=== PATIENT | female | born 1990 | race American Indian/Alaskan Native ===

== ENCOUNTER 2016-10-09 16:16 | Emergency (ER) | payer MEDICAID ==
[2016-10-09 16:42] VITALS: BMI 37.4
[2016-10-09 16:44] VITALS: BP 135/86; PULSE 80; RESP 16; TEMP 97.8; O2SAT 98
== END 2016-10-10 04:03 | disposition left against medical advice (07) ==
LOC: ED 16:16
DX: Z02.89 Encounter for other administrative examinations (principal); R10.9 Unspecified abdominal pain

== ENCOUNTER 2017-01-13 20:38 | Emergency (ER) | payer MEDICAID ==
[2017-01-13 20:38] VITALS: BMI 37.4
[2017-01-13 21:01] VITALS: TEMP 98.9
--- NOTE | 2017-01-13 21:34 | ED PDOC ---
Arrival/HPI - General Chief Complaint: Abdominal Pain Time Seen by Provider: 01/13/17 20:45 Historian: Patient - History of Present Illness Narrative History of Present Illness (Text): 01/13/17 21:36 Patient complains of 1 day h/o crampy pelvic pain, similar to the pain she would experience with menstrual cramps, associated with vaginal spotting. Patient states that since March of last year she stopped getting her menses , she went to see her [facility]IST and was diagnosed with PCOS, was subsequently treated with OCPs with no improvement, and was then placed on metformin, which she has been taking for the past 2 months. However, states despite all these treatments she still does not have a normal menstrual cycle. Otherwise: (-) vomiting, (-) urinary symptoms, (-) vaginal discharge, (-) diarrhea, (-) fever, (-) melena, (- ) hematochezia. Has no history of prior abdominal surgery. PMD [place] Past Medical History - Provider Review Nursing Documentation Reviewed: Yes - Infectious Disease Hx of Infectious Diseases: None - Tetanus Immunization Tetanus Immunization: Unknown - Cardiac Hx Cardiac Disorders: No - Pulmonary Hx Respiratory Disorders: Yes Hx Asthma: Yes - Neurological Hx Neurological Disorder: No - HEENT Hx HEENT Disorder: No - Renal Hx Renal Disorder: No - Endocrine/Metabolic Hx Endocrine Disorders: No - Hematological/Oncological Hx Blood Disorders: No - Integumentary Hx Dermatological Disorder: No - Musculoskeletal/Rheumatological Hx Musculoskeletal Disorders: Yes Hx Fractures: Yes - Gastrointestinal Hx Gastrointestinal Disorders: Yes Hx Diverticulitis: Yes - Genitourinary/Gynecological Hx Genitourinary Disorders: No - Psychiatric Hx Psychophysiologic Disorder: No Hx Depression: No Hx Substance Use: No - Past Surgical History Past Surgical History: No Previous - Surgical History Hx Section: Yes (x1) - Anesthesia Hx Anesthesia: No Hx Anesthesia Reactions: No Hx Malignant Hyperthermia: No - Suicidal Assessment Feels Threatened In Home Enviroment: No Family/Social History - Physician Review Nursing Documentation Reviewed: Yes Family/Social History: No Known Family HX Smoking Status: Current Some Days Smoker Hx Alcohol Use: No Hx Substance Use: No Hx Substance Use Treatment: No Allergies/Home Meds Allergies/Adverse Reactions: Allergies No Known Allergies Allergy (Verified 01/13/17 20:59) Home Medications: Home Meds Medication Instructions Recorded Confirmed MetFORMIN [glucoPHAGE] 500 mg PO BID 01/13/17 01/13/17 Review of Systems - Review of Systems Constitutional: Normal. absent: Fatigue, Weight Change, Fevers Respiratory: Normal. absent: SOB, Cough, Sputum Cardiovascular: Normal. absent: Chest Pain, Palpitations, Edema Gastrointestinal: Normal. absent: Abdominal Pain, Stool Changes, Appetite Changes Genitourinary Female: Normal, Other (h/o amenorrhea). absent: Dysuria, Frequency, Hematuria, Vaginal Discharge Musculoskeletal: Normal. absent: Arthralgias, Back Pain, Neck Pain Skin: Normal. absent: Rash, Pruritis, Skin Lesions Physical Exam Vital Signs Temp Pulse Resp BP Pulse Ox 01/13/17 21:01 98.9 F 102 H 16 125/88 98 Temperature: Afebrile Blood Pressure: Normal Pulse: Tachycardic Respiratory Rate: Normal Appearance: Positive for: Well-Appearing, Non-Toxic, Comfortable Pain Distress: Mild Mental Status: Positive for: Alert and Oriented X 3 - Systems Exam Head: Present: Atraumatic, Normocephalic Mouth: Present: Moist Mucous Membranes Neck: Present: Normal Range of Motion. No: MIDLINE TENDERNESS Respiratory/Chest: Present: Clear to Auscultation, Good Air Exchange. No: Respiratory Distress, Accessory Muscle Use, Wheezes, Rales, Rhonchi Cardiovascular: Present: Regular Rate and Rhythm, Normal S1, S2. No: Murmurs Abdomen: Present: Tenderness (mild tenderness to the suprapubic area), Normal Bowel Sounds. No: Distention, Peritoneal Signs, Rebound, Guarding Back: Present: Normal Inspection. No: CVA Tenderness, Midline Tenderness Upper Extremity: Present: Normal Inspection, Normal ROM, NORMAL PULSES. No: Edema Lower Extremity: Present: Normal Inspection, NORMAL PULSES, Normal ROM. No: Edema Neurological: Present: GCS=15, CN II-XII Intact, Speech Normal Skin: Present: Warm, Dry, Normal Color. No: Rashes Psychiatric: Present: Alert, Oriented x 3, Normal Insight, Normal Concentration Medical Decision Making ED Course and Treatment: 01/13/17 21:30 26 yo F with h/o PCOS, presents with 1 day h/o crampy pelvic pain and vaginal spotting. To r/o ectopic , ovarian torsion, possible dysmenorrhea. Plan: -- Labs -- IV fluids -- Urinalysis -- Zofran / Toradol -- Reassess and disposition -- Pelvic US 01/13/17 22:15 [facility] [place] (-). On re-evaluation, patient still continued to c/o pelvic pain despite toradol dose. IV morphine 4 mg ordered. Patient went to US. 01/13/17 22:44 Patient returned form US without any incident. US results show no ovarian torsion, labs reviewed and are wnl. 01/13/17 23:30 On reevaluation, patient reports improvement of pain. On exam patient is laying in bed comfortably in no acute distress. Abdomen remains soft with no tenderness , no guarding, no rebound. Diagnostic results discussed with the patient in great detail. Based on history, exam and diagnostic results plan will be for outpatient follow -up with [facility]. Patient states she fully agrees with and understands discharge instructions. States that she agrees with the plan and disposition. Verbalized and repeated discharge instructions and plan. I have given the patient opportunity to ask any additional questions. Follow up with [facility] in 1-2 days without fail. Advised to take [id number] Aleve as needed for pain.. Return to the emergency room at any time for any new or worsening symptoms. - Lab Interpretations Lab Results: 01/13/17 21:40 01/13/17 21:40 Lab Results 01/13/17 21:40: Sodium 137, Potassium 3.7, Chloride 105, Carbon Dioxide 24, Anion Gap 12, BUN 15, Creatinine 0.8, Est GFR ( Amer) > 60, Est GFR (Non- Af Amer) > 60, Random Glucose 82, Calcium 9.0, Total Bilirubin 0.5, AST 24, ALT 29, Alkaline Phosphatase 74, Total Protein 7.2, Albumin 4.1, Globulin 3.1, Albumin/Globulin Ratio 1.3 01/13/17 21:40: Urine Color Yellow, Urine Appearance Clear, Urine pH 6.0, Ur Specific [place] 1.025, Urine Protein Negative, Urine Glucose (UA) Negative, Urine Ketones Negative, Urine Blood Moderate H, Urine Nitrate Negative, Urine Bilirubin Negative, Urine Urobilinogen 0.2, Ur Leukocyte Esterase Negative, Urine RBC 5 - 10, Urine WBC 0 - 2, Ur Epithelial Cells 6 - 8, Urine Bacteria Small 01/13/17 21:40: WBC 10.3 D, RBC 4.37, Hgb 12.5, Hct 36.6, MCV 83.8, MCH 28.6, MCHC 34.2, RDW 12.9, Plt Count 157, MPV 10.8, Gran % 71.2 H, Lymph % (Auto) 20.9 L, Jewell % (Auto) 4.8, Eos % (Auto) 2.9, Baso % (Auto) 0.2, Gran # 7.31 H, Lymph # 2.2, Jewell # 0.5, Eos # 0.3, Baso # 0.02 - RAD Interpretation Narrative RAD Interpretations (Text): 01/13/17 22:43 TV US: FINDINGS: Uterus/cervix: Measures 0.5 cm. There is no intrauterine . No myometrial mass. Right ovary: There are physiologic cysts in the right ovary. No mass. Normal blood flow. Left ovary: There are physiologic cysts in the left ovary. No mass. Normal blood flow. Free fluid: There is a small amount of free fluid in the pelvis. IMPRESSION: There is no ovarian torsion. Dictated and Authenticated by: Devang Yan MD 01/13/2017 10:24 PM Eastern Time ([place] & [place]) Radiology Orders: 01/13/17 21:32 TRANSVAGINAL [US] Stat - Medication Orders Current Medication Orders: Discontinued Medications Ketorolac Tromethamine (Toradol) 30 mg IVP STAT STA Stop: 01/13/17 21:34 Last Admin: 01/13/17 21:54 Dose: 30 mg Morphine Sulfate (Morphine) 4 mg IVP STAT STA Stop: 01/13/17 22:18 Last Admin: 01/13/17 22:26 Dose: 4 mg Ondansetron HCl (Zofran Inj) 4 mg IVP STAT STA Stop: 01/13/17 21:33 Last Admin: 01/13/17 21:54 Dose: 4 mg - PA / THREADER / Resident Statement / has reviewed & agrees with the documentation as recorded. Disposition/Present on Arrival - Present on Arrival Any Indicators Present on Arrival: No History of DVT/PE: No History of Uncontrolled Diabetes: No Urinary Catheter: No History of Decub. Ulcer: No History Surgical Site Infection Following: None - Disposition Have Diagnosis and Disposition been Completed?: Yes Diagnosis: Pelvic pain Disposition: HOME/ ROUTINE Disposition Time: 23:30 Patient Plan: Discharge Patient Problems: Current Active Problems Problem Status Onset Pelvic pain Acute Condition: IMPROVED Discharge Instructions (ExitCare): Pelvic Pain in Women (ED) Print Language: PERSIAN Additional Instructions: Thank you for letting us take care of you today. You were treated for pelvic pain. The emergency medical care you received today was directed at your acute symptoms. Take over the counter aleeve as needed for pain. Return to the Emergency Department if your symptoms worsen, do not improve, or if you have any other problems. Please contact your accounting bookkeeper doctor in 2 days for re-evaluation and follow up. Bring any paperwork you were given at discharge with you along with any medications you are taking to your follow up visit. Our treatment cannot replace ongoing medical care by a primary care provider (PCP) outside of the emergency department. Thank you for allowing the [email or web address] team to be part of your care today. Forms: WORK NOTE
[2017-01-13 21:57] LABS: ADD MANUAL DIFF? NO
[2017-01-13 22:03] LABS: BASO # 0.02 K/mm3 (0.0-2.0); BASO % 0.2 % (0.0-3.0); EOS # 0.3 (0.0-0.7); EOS % 2.9 % (1.5-5.0); GRAN # 7.31 (1.4-6.5); GRAN % 71.2 % (50.0-68.0); HEMATOCRIT 36.6 % (36.0-48.0); LYMPH # 2.2 (1.2-3.4); LYMPH % 20.9 % (22.0-35.0); MEAN CELL VOLUME 83.8 fL (80.0-105.0); MEAN CORPUSCULAR HEMOGLOBIN 28.6 pg (25.0-35.0); MEAN CORPUSCULAR HGB CONC 34.2 g/dl (31.0-37.0); MEAN PLATELET VOLUME 10.8 fl (7.0-11.0); MONO # 0.5 (0.1-0.6); MONO % 4.8 % (1.0-6.0); PLATELET COUNT 157 10^3/uL (120.0-450.0); RED CELL DISTRIBUTION WIDTH 12.9 % (11.5-14.5); WHITE BLOOD COUNT 10.3 10^3/ul (4.5-11.0)
[2017-01-13 22:07] LABS: URINE BILIRUBIN NEGATIVE (NEGATIVE); URINE BLOOD MODERATE (NEGATIVE); URINE GLUCOSE (UA) NEGATIVE (NEGATIVE); URINE KETONE NEGATIVE (NEGATIVE); URINE LEUKOCYTE ESTERASE NEGATIVE Leu/uL (NEGATIVE); URINE PROTEIN NEGATIVE mg/dL (<30 mg/dL); URINE UROBILINOGEN 0.2 E.U./dL (<1 E.U./dL)
[2017-01-13 22:09] LABS: URINE APPEARANCE CLEAR (CLEAR); URINE COLOR YELLOW (YELLOW)
[2017-01-13 22:14] LABS: ALB/GLOB RATIO 1.3 (1.1-1.8); ALKALINE PHOSPHATASE 74 U/L (38-133); ALT/SGPT 29 U/L (7-56); AST/SGOT 24 U/L (15-39); BILIRUBIN,TOTAL 0.5 mg/dL (0.2-1.3); BLOOD UREA NITROGEN 15 mg/dL (7-21); CARBON DIOXIDE 24 mmol/L (21-33); CHLORIDE 105 mmol/L (98-107); GFR AFRICAN-AMERICAN > 60; GLUCOSE,RANDOM 82 mg/dL (70-110); POTASSIUM 3.7 mmol/L (3.6-5.0); SODIUM 137 mmol/L (132-148); TOTAL PROTEIN 7.2 g/dL (5.8-8.3)
[2017-01-13] MEDS ORDERED: Morphine 4 mg/ml ISec IVP STA (22:17)
[2017-01-13 22:20] LABS: URINE WBC 0 - 2 /hpf (0-6)
[2017-01-13 22:21] LABS: URINE BACTERIA SMALL (NEG)
[2017-01-13 23:44] VITALS: BP 120/79; PULSE 88; RESP 18; O2SAT 97
--- NOTE | 2017-01-15 13:47 | US ---
HISTORY: pelvic pain, r/o ovarian torsion COMPARISON: Transvaginal pelvic ultrasound performed 02/27/15 TECHNIQUE: Transvaginal pelvic ultrasound FINDINGS: UTERUS: Measures 7.3 x 3.1 x 4.6 cm. Anteverted. ENDOMETRIUM: Heterogeneous appearance. Measures approximately 5 mm in diameter and contains trace fluid. IUD previously demonstrated on transvaginal pelvic ultrasound performed 02/27/15 is no longer seen. CERVIX: No cervical abnormality identified. RIGHT OVARY: Measures 2.8 x 4.0 x 3.4 cm. Blood flow is demonstrated. Follicles. LEFT OVARY: Measures 3.6 x 2.5 x 3.2 cm. Blood flow is demonstrated. Follicles. FREE FLUID: Small pelvic free fluid. OTHER FINDINGS: None. IMPRESSION: Mildly heterogeneous appearance of the endometrium which measures approximately 5 mm in diameter and contains trace fluid. Small pelvic free fluid. Preliminary impression was provided by virtual radiologic.
== END 2017-01-13 23:54 | disposition home or self-care (01) ==
LOC: ED 20:38
DX: R10.2 Pelvic and perineal pain (principal)
CPT/HCPCS: 76830; 80053; 81001; 85025; 87086; 96374; 96375; 99284; J1885; J2270; J2405

== ENCOUNTER 2017-04-25 02:17 | Emergency (ER) | payer MEDICAID ==
[2017-04-25 02:17] VITALS: BMI 37.4
[2017-04-25 02:37] VITALS: RESP 18
--- NOTE | 2017-04-25 03:29 | ED PDOC ---
Arrival/HPI <Wilber Cuevas - Last Filed: 04/25/17 04:01> <Noam Kirkland - Last Filed: 04/25/17 05:08> - General Chief Complaint: Back Pain Time Seen by Provider: 04/25/17 02:59 - History of Present Illness Narrative History of Present Illness (Text): 26 year old female with a past medical history of scoliosis and diverticulosis who presents with 3 days of worsening thoracolumbar pain. She denies any radiation of the pain to the legs, associated numbness or tingling, weakness, or sensori-motor loss. She denies any bowel or bladder incontinence. She reports her pain has not responded to her typical pain regiment nor to a heating pad. She denies any trauma or precipitating event. 04/25/17 03:25 04/25/17 03:42 (Noam Kirkland) Past Medical History - Provider Review Nursing Documentation Reviewed: Yes - Infectious Disease Hx of Infectious Diseases: None - Tetanus Immunization Tetanus Immunization: Unknown - Cardiac Hx Cardiac Disorders: No - Pulmonary Hx Respiratory Disorders: Yes Hx Asthma: Yes - Neurological Hx Neurological Disorder: No - HEENT Hx HEENT Disorder: No - Renal Hx Renal Disorder: No - Endocrine/Metabolic Hx Endocrine Disorders: No - Hematological/Oncological Hx Blood Disorders: No - Integumentary Hx Dermatological Disorder: No - Musculoskeletal/Rheumatological Hx Musculoskeletal Disorders: Yes Hx Fractures: Yes Other/Comment: scoliosis - Gastrointestinal Hx Gastrointestinal Disorders: Yes Hx Diverticulitis: Yes - Genitourinary/Gynecological Hx Genitourinary Disorders: No - Psychiatric Hx Psychophysiologic Disorder: No Hx Depression: No Hx Substance Use: No - Past Surgical History Past Surgical History: No Previous - Surgical History Hx Section: Yes (x1) - Anesthesia Hx Anesthesia: No Hx Anesthesia Reactions: No Hx Malignant Hyperthermia: No - Suicidal Assessment Feels Threatened In Home Enviroment: No <Noam Kirkland - Last Filed: 04/25/17 05:08> Family/Social History - Physician Review Nursing Documentation Reviewed: Yes Family/Social History: No Known Family HX Smoking Status: Light Smoker < 10 Cigarettes Daily Hx Alcohol Use: No Hx Substance Use: No Hx Substance Use Treatment: No <Noam Kirkland - Last Filed: 04/25/17 05:08> Allergies/Home Meds <Wilber Cuevas - Last Filed: 04/25/17 04:01> <Noma Kirkland - Last Filed: 04/25/17 05:08> Allergies/Adverse Reactions: Allergies No Known Allergies Allergy (Verified 04/25/17 02:32) Home Medications: Home Meds Medication Instructions Recorded Confirmed MetFORMIN [glucoPHAGE] 500 mg PO BID 01/13/17 04/25/17 Review of Systems - Review of Systems Constitutional: absent: Fatigue, Weight Change, Fevers Eyes: absent: Vision Changes, Photophobia ENT: absent: Hearing Changes, Tinnitus Respiratory: absent: SOB, Cough, Sputum Cardiovascular: absent: Chest Pain, Palpitations, Edema Gastrointestinal: absent: Abdominal Pain, Constipation, Diarrhea, Nausea, Vomiting Genitourinary Female: absent: Dysuria, Frequency Musculoskeletal: Back Pain. absent: Neck Pain, Joint Swelling Skin: Normal. absent: Rash, Pruritis Neurological: absent: Headache, Dizziness, Focal Weakness Endocrine: absent: Diaphoresis, Polyuria, Polydipsia Hemo/Lymphatic: absent: Easy Bleeding, Easy Bruising Psychiatric: absent: Anxiety, Depression <Noam Kirkland - Last Filed: 04/25/17 05:08> Physical Exam Temperature: Afebrile Blood Pressure: Normal Pulse: Regular Respiratory Rate: Normal Appearance: Positive for: Uncomfortable Pain Distress: Severe Mental Status: Positive for: Alert and Oriented X 3 - Systems Exam Head: Present: Atraumatic, Normocephalic Pupils: Present: PERRL Extroacular Muscles: Present: EOMI Conjunctiva: Present: Normal Ears: Present: NORMAL TM Mouth: Present: Moist Mucous Membranes Neck: Present: Normal Range of Motion. No: Meningeal Signs, Paraspinal Tenderness Respiratory/Chest: Present: Clear to Auscultation. No: Respiratory Distress, Accessory Muscle Use Cardiovascular: Present: Regular Rate and Rhythm, Normal S1, S2 Abdomen: Present: Normal Bowel Sounds. No: Tenderness, Distention Back: Present: Paraspinal Tenderness (thoracolumbar). No: CVA Tenderness, Pain with Leg Raise Upper Extremity: Present: Normal Inspection, Edema Lower Extremity: Present: Normal Inspection. No: Edema, CALF TENDERNESS Neurological: Present: CN II-XII Intact, Speech Normal, Motor Func Grossly Intact, Normal Sensory Function Skin: Present: Warm, Dry, Normal Color Psychiatric: Present: Alert, Oriented x 3, Normal Insight <Noam Kirkland - Last Filed: 04/25/17 05:08> Vital Signs Temp Pulse Resp Pulse Ox 04/25/17 02:32 98.3 F 88 18 100 Medical Decision Making <Wilber Cuevas - Last Filed: 04/25/17 04:01> <Noam Kirkland - Last Filed: 04/25/17 05:08> ED Course and Treatment: Patient was seen and evaluated with the medical research tech. Agree with HPI, clinical findings, treatment plan. (Wilber Cuevas) 10 mg of Flexeril and 800 mg of Motrin PO. 04/25/17 03:32 04/25/17 03:45 (Noam Kirkland) - Medication Orders Current Medication Orders: Discontinued Medications Cyclobenzaprine HCl (Flexeril) 10 mg PO STAT STA Stop: 04/25/17 03:25 Last Admin: 04/25/17 03:57 Dose: 10 mg Ibuprofen (Motrin Tab) 800 mg PO STAT STA Stop: 04/25/17 03:45 Last Admin: 04/25/17 03:58 Dose: 800 mg Oxycodone/Acetaminophen (Percocet 5/325 Mg Tab) 1 tab PO STAT STA Stop: 04/25/17 04:32 Last Admin: 04/25/17 04:35 Dose: 1 tab MAR Pain Assessment Document 04/25/17 04:35 DOUGLAS (Rec: 04/25/17 04:36 DOUGLAS [id number]) Pain Reassessment Is this a pain reassessment? Yes - PA / INFRASTRUCTURE DESIGN ENGINEER / Resident Statement / has reviewed & agrees with the documentation as recorded. / has examined the patient and agrees with the treatment plan. <Wilber Cuevas - Last Filed: 04/25/17 04:01> Disposition/Present on Arrival <Wilber Cuevas - Last Filed: 04/25/17 04:01> - Present on Arrival Any Indicators Present on Arrival: No History of DVT/PE: No History of Uncontrolled Diabetes: No Urinary Catheter: No History of Decub. Ulcer: No History Surgical Site Infection Following: None - Disposition Have Diagnosis and Disposition been Completed?: Yes Disposition Time: 04:53 <Noam Kirkland - Last Filed: 04/25/17 05:08> - Disposition Diagnosis: Chronic low back pain Disposition: HOME/ ROUTINE Patient Problems: Current Active Problems Problem Status Onset Chronic low back pain Acute Condition: STABLE Additional Instructions: [Ms. Davenport], thank you for letting us take care of you today. Your provider was [Dr. Kirkland and Dr. Cuevas]. You were treated for [back pain]. The emergency medical care you received today was directed at your acute symptoms. If you were prescribed any medication, please fill it and take as directed. It may take several days for your symptoms to resolve. Return to the Emergency Department if your symptoms worsen, do not improve, or if you have any other problems. Please contact your doctor or call one of the physicians/clinics you have been referred to that are listed on the Patient Visit Information form that is included in your discharge packet. Bring any paperwork you were given at discharge with you along with any medications you are taking to your follow up visit. Our treatment cannot replace ongoing medical care by a primary care provider (PCP) outside of the emergency department. Thank you for allowing the [facility] team to be part of your care today. Please follow up with your PMD within the next week. If you had an X-Ray or CT scan: A Radiologist will review the ED reading if any change in treatment is needed we will contact you. If you had a blood, urine, or wound culture: It will take several days for the results, if any change in treatment is needed we will contact you. If you had an STI test: It will take 48 hours for the results. Please call after 1 week if you have not heard back. Prescriptions: Cyclobenzaprine [Cyclobenzaprine HCl] 10 mg PO ONCE #10 tab Forms: [employer] (Uzbek)
[2017-04-25] MEDS ORDERED: Oxycodone/Acetaminophen 5/325 mg Tab PO STA (04:31)
[2017-04-25 05:01] VITALS: BP 128/67; PULSE 68; TEMP 98.1; O2SAT 99
== END 2017-04-25 05:01 | disposition home or self-care (01) ==
LOC: ED 02:17
DX: G89.29 Other chronic pain (principal); M54.5 Low back pain

== ENCOUNTER 2017-07-23 01:47 | Emergency (ER) | payer MEDICAID ==
[2017-07-23 01:47] VITALS: BMI 37.4
[2017-07-23 02:00] VITALS: TEMP 98.1
[2017-07-23 02:07] VITALS: RESP 18
[2017-07-23] MEDS ORDERED: Morphine 2 mg/ml ISec IVP STA (02:08)
[2017-07-23] MEDS ORDERED: Sodium Chloride 0.9% 1,000 ML IV STA (02:08)
--- NOTE | 2017-07-23 02:15 | ED PDOC ---
Arrival/HPI - General Chief Complaint: Medical Clearance Time Seen by Provider: 07/23/17 01:58 Historian: Patient - History of Present Illness Narrative History of Present Illness (Text): 07/23/17 02:10 26 year told female, whose past medical history includes scoliosis, H. Pylori and diverticulosis, presents to the emergency department complaining of worsening abdominal discomfort for that past week. Patient describes the pain as a burning sensation. She states she has these symptoms for a few months and was diagnosed with H. Pylori by her mobile application development lead and given Clarithromycin , Omeprazole, and Amoxicillin with worsening pain. Patient reports nausea and vomiting, but denies any fever, chills, chest pain, shortness of breath, diarrhea, urinary symptoms, back pain, neck pain, headache, dizziness, or any other complaints. Form Stripper: Dr. Dixon Time/Duration: 1 week Symptom Onset: Gradual Symptom Course: Unchanged Quality: Burning Activities at Onset: Light Context: Home Past Medical History - Provider Review Nursing Documentation Reviewed: Yes - Infectious Disease Hx of Infectious Diseases: None - Tetanus Immunization Tetanus Immunization: Unknown - Cardiac Hx Cardiac Disorders: No - Pulmonary Hx Asthma: Yes - Neurological Hx Neurological Disorder: No - HEENT Hx HEENT Disorder: No - Renal Hx Renal Disorder: No - Endocrine/Metabolic Hx Endocrine Disorders: No - Hematological/Oncological Hx Blood Disorders: No - Integumentary Hx Dermatological Disorder: No - Musculoskeletal/Rheumatological Hx Fractures: Yes - Gastrointestinal Hx Diverticulitis: Yes Other/Comment: h pylori - Genitourinary/Gynecological Hx Genitourinary Disorders: No - Psychiatric Hx Psychophysiologic Disorder: No Hx Depression: No Hx Substance Use: No - Past Surgical History Past Surgical History: No Previous - Surgical History Hx Section: Yes (x1) - Anesthesia Hx Anesthesia: No Hx Anesthesia Reactions: No Hx Malignant Hyperthermia: No - Suicidal Assessment Feels Threatened In Home Enviroment: No Family/Social History - Physician Review Nursing Documentation Reviewed: Yes Family/Social History: No Known Family HX Smoking Status: Light Smoker < 10 Cigarettes Daily Hx Alcohol Use: No Hx Substance Use: No Hx Substance Use Treatment: No Allergies/Home Meds Allergies/Adverse Reactions: Allergies No Known Allergies Allergy (Verified 07/23/17 01:57) Home Medications: Home Meds Medication Instructions Recorded Confirmed Amoxicillin [Amoxil 500 mg Cap] 500 mg PO BID 07/23/17 07/23/17 Clarithromycin [Biaxin Filmtab] 500 mg PO BID 07/23/17 07/23/17 Omeprazole 20 mg PO BID 07/23/17 07/23/17 Review of Systems - Physician Review All systems were reviewed & negative as marked: Yes - Review of Systems Constitutional: absent: Fevers, Other (Chills) Respiratory: absent: SOB Cardiovascular: absent: Chest Pain Gastrointestinal: Abdominal Pain, Nausea, Vomiting. absent: Diarrhea Genitourinary Female: absent: Dysuria, Frequency, Hematuria Musculoskeletal: absent: Back Pain, Neck Pain Neurological: absent: Headache, Dizziness Physical Exam Vital Signs Reviewed: Yes Vital Signs Temp Pulse Resp BP Pulse Ox 07/23/17 02:06 98.1 F 95 H 18 142/88 98 07/23/17 01:58 98.1 F Temperature: Afebrile Blood Pressure: Normal Pulse: Regular Respiratory Rate: Normal Appearance: Positive for: Well-Appearing, Non-Toxic, Comfortable Pain Distress: None Mental Status: Positive for: Alert and Oriented X 3 - Systems Exam Head: Present: Atraumatic, Normocephalic Pupils: Present: PERRL Extroacular Muscles: Present: EOMI Conjunctiva: Present: Normal Mouth: Present: Moist Mucous Membranes Neck: Present: Normal Range of Motion Respiratory/Chest: Present: Clear to Auscultation, Good Air Exchange. No: Respiratory Distress, Accessory Muscle Use Cardiovascular: Present: Regular Rate and Rhythm, Normal S1, S2. No: Murmurs Abdomen: Present: Normal Bowel Sounds. No: Tenderness, Distention, Peritoneal Signs Back: Present: Normal Inspection Upper Extremity: Present: Normal Inspection. No: Cyanosis, Edema Lower Extremity: Present: Normal Inspection. No: Edema Neurological: Present: GCS=15, CN II-XII Intact, Speech Normal Skin: Present: Warm, Dry, Normal Color. No: Rashes Psychiatric: Present: Alert, Oriented x 3, Normal Insight, Normal Concentration Medical Decision Making ED Course and Treatment: 07/23/17 02:10 Impression: 26 year old female presents complaining of burning abdominal discomfort associated with nausea and vomiting. PE normal. Plan: -- Labs -- Morphine -- Pepcid -- IV FLuids -- Zofran Inj -- HCG Qual Urine -- Urinalysis -- Reassess and disposition Prior Visits: Notes and results from previous visits were reviewed. Patient was last seen in the emergency department on 04/25/17 presents complaining of thoracolumbar pain for the past 3 days. Patient was discharge. Progress Notes: 07/23/17 04:03 On re-evaluation, patient feels better and is in no acute distress. I have discussed the results and plan with the patient, who expresses understanding. Patient in agreement with plan to be discharged home. Patient is stable for discharge. Patient was instructed to follow up with physician or return if symptoms worsen or new concerning symptoms arise. - Lab Interpretations Lab Results: 07/23/17 02:15 07/23/17 02:15 Lab Results 07/23/17 02:15: WBC 7.9 D, RBC 4.80, Hgb 14.0, Hct 40.9, MCV 85.2, MCH 29.2, MCHC 34.2, RDW 12.9, Plt Count 177, MPV 11.1 H 07/23/17 02:15: Sodium 140, Potassium 3.8, Chloride 105, Carbon Dioxide 24, Anion Gap 15, BUN 10, Creatinine 0.7, Est GFR ( Amer) > 60, Est GFR (Non- Af Amer) > 60, Random Glucose 90, Calcium 9.7, Total Bilirubin 0.4, AST 24, ALT 41, Alkaline Phosphatase 67, Total Protein 8.0, Albumin 4.7, Globulin 3.3, Albumin/Globulin Ratio 1.4, Lipase 192 07/23/17 02:15: Urine Color Yellow, Urine Appearance Clear, Urine pH 6.0, Ur Specific [place] >= 1.030, Urine Protein Trace H, Urine Glucose (UA) Negative, Urine Ketones Trace H, Urine Blood Negative, Urine Nitrate Negative, Urine Bilirubin Negative, Urine Urobilinogen 0.2, Ur Leukocyte Esterase Negative, Urine RBC 0 - 2, Urine WBC 1 - 3, Ur Epithelial Cells 3 - 4, Urine Bacteria Rare , Urine HCG, Qual Negative I have reviewed the lab results: Yes - Medication Orders Current Medication Orders: Discontinued Medications Famotidine (Pepcid) 20 mg IVP STAT STA Stop: 07/23/17 02:09 Last Admin: 07/23/17 02:20 Dose: 20 mg IVP Administration Document 07/23/17 02:20 IT (Rec: 07/23/17 02:20 IT [id number]) Charges for Administration # of IVP Administrations 1 Sodium Chloride (Sodium Chloride 0.9%) 1,000 mls @ 999 mls/hr IV .Q1H1M STA Stop: 07/23/17 03:08 Last Admin: 07/23/17 02:20 Dose: 999 mls/hr eMAR Start Stop Document 07/23/17 02:20 IT (Rec: 07/23/17 02:21 IT [id number]) Intravenous Solution Start Date 07/23/17 Start Time 02:20 End Date 07/23/17 End time 03:20 Total Infusion Time 60 Morphine Sulfate (Morphine) 2 mg IVP STAT STA Stop: 07/23/17 02:09 Last Admin: 07/23/17 02:20 Dose: 2 mg MAR Pain Assessment Document 07/23/17 02:20 IT (Rec: 07/23/17 02:20 IT [id number]) Pain Reassessment Is this a pain reassessment? No Sleep Is patient sleeping during reassessment? No Presence of Pain Presence of Pain Yes Pain Scale Used Pain Scale Used Numeric Location Pain Location Body Site Generalized IVP Administration Document 07/23/17 02:20 IT (Rec: 07/23/17 02:20 IT [id number]) Charges for Administration # of IVP Administrations 1 Morphine Sulfate (Morphine) 4 mg IVP STAT STA Stop: 07/23/17 03:03 Last Admin: 07/23/17 03:10 Dose: 4 mg MAR Pain Assessment Document 07/23/17 03:10 AD (Rec: 07/23/17 03:11 AD [id number]) Pain Reassessment Is this a pain reassessment? No Presence of Pain Presence of Pain Yes Pain Scale Used Pain Scale Used Numeric Location Left, Right or Bilateral Bilateral Pain Location Body Night Guard Leg Description Description Constant Intensity of Pain at present 10 Pain Behavior Moaning Facial Grimacing IVP Administration Document 07/23/17 03:10 AD (Rec: 07/23/17 03:11 AD [id number]) Charges for Administration # of IVP Administrations 1 Ondansetron HCl (Zofran Inj) 4 mg IVP ONCE ONE Stop: 07/23/17 02:09 Last Admin: 07/23/17 02:21 Dose: 4 mg IVP Administration Document 07/23/17 02:21 IT (Rec: 07/23/17 02:21 [id number]) Charges for Administration # of IVP Administrations 1 - Scribe Statement The provider has reviewed the documentation as recorded by the Ashley Villela Provider Scribe Attestation: All medical record entries made by the Scribe were at my direction and personally dictated by me. I have reviewed the chart and agree that the record accurately reflects my personal performance of the history, physical exam, medical decision making, and the department course for this patient. I have also personally directed, reviewed, and agree with the discharge instructions and disposition. Disposition/Present on Arrival - Present on Arrival Any Indicators Present on Arrival: No History of DVT/PE: No History of Uncontrolled Diabetes: No Urinary Catheter: No History of Decub. Ulcer: No History Surgical Site Infection Following: None - Disposition Have Diagnosis and Disposition been Completed?: Yes Diagnosis: Gastritis Disposition: HOME/ ROUTINE Disposition Time: 04:01 Patient Plan: Discharge Patient Problems: Current Active Problems Problem Status Onset Gastritis Acute Condition: GOOD Discharge Instructions (ExitCare): Gastritis (ED) Additional Instructions: [place] diet next few days/avoid caffeinated beverages/spicy foods/follow up with your mobile application development lead this week Prescriptions: Phenobarb/Hyoscy/Atropine/Scop [ Tablet] 16.2 mg PO Q6 PRN #12 tablet PRN Reason: Dyspepsia Referrals: [place] Su, [Primary Care Provider] - Follow up with primary Forms: [employer] (Maldivian)
[2017-07-23 02:34] LABS: MEAN CELL VOLUME 85.2 fl (80.0-105.0); MEAN CORPUSCULAR HEMOGLOBIN 29.2 pg (25.0-35.0); MEAN CORPUSCULAR HGB CONC 34.2 g/dl (31.0-37.0); MEAN PLATELET VOLUME 11.1 fl (7.0-11.0); RBC 4.8 10^6/uL (3.5-6.1); RED CELL DISTRIBUTION WIDTH 12.9 % (11.5-14.5); WHITE BLOOD COUNT 7.9 10^3/ul (4.5-11.0)
[2017-07-23 02:35] LABS: URINE BILIRUBIN NEGATIVE (NEGATIVE); URINE BLOOD NEGATIVE (NEGATIVE); URINE GLUCOSE (UA) NEGATIVE (NEGATIVE); URINE LEUKOCYTE ESTERASE NEGATIVE Leu/uL (NEGATIVE); URINE NITRATE NEGATIVE (NEGATIVE); URINE PROTEIN TRACE mg/dL (<30 mg/dL); URINE UROBILINOGEN 0.2 E.U./dL (<1 E.U./dL)
[2017-07-23 02:42] LABS: HCG,QUALITATIVE URINE NEGATIVE (NEGATIVE)
[2017-07-23 02:43] LABS: ALB/GLOB RATIO 1.4 (1.1-1.8); ALBUMIN 4.7 g/dL (3.0-4.8); ALT/SGPT 41 U/L (7-56); AST/SGOT 24 U/L (14-36); BLOOD UREA NITROGEN 10 mg/dL (7-21); CALCIUM 9.7 mg/dL (8.4-10.5); GFR AFRICAN-AMERICAN > 60; GFR NON-AFRICAN AMERICAN > 60; LIPASE 192 U/L (23-300); URINE APPEARANCE CLEAR (CLEAR); URINE COLOR YELLOW (YELLOW); URINE RBC 0 - 2 /hpf (0-2)
[2017-07-23 02:44] LABS: URINE BACTERIA RARE (NEG)
[2017-07-23] MEDS ORDERED: Morphine 4 mg/ml ISec IVP STA (03:02)
[2017-07-23 04:09] VITALS: BP 132/85; PULSE 90; O2SAT 100
== END 2017-07-23 04:13 | disposition home or self-care (01) ==
LOC: ED 01:47
DX: K29.70 Gastritis, unspecified, without bleeding (principal)
CPT/HCPCS: 80053; 81001; 83690; 84703; 85027; 96361; 96374; 96375; 96376; 99283; J2270; J2405; J7040

== ENCOUNTER 2017-10-13 09:22 | Emergency (ER) | payer MEDICAID, OTHER ==
[2017-10-13 09:38] VITALS: BMI 34.2
[2017-10-13 09:39] VITALS: TEMP 98.5
[2017-10-13 09:49] VITALS: RESP 18
[2017-10-13] MEDS ORDERED: Sodium Chloride 0.9% 1,000 ML IV STA (09:59)
--- NOTE | 2017-10-13 10:03 | ED PDOC ---
Arrival/HPI - General Chief Complaint: ENT Problem Time Seen by Provider: 10/13/17 09:58 Historian: Patient - History of Present Illness Narrative History of Present Illness (Text): 10/13/17 10:00 26 y/o female, pmh including chronic enlarged tonsil/asthma, c/o coughing/ throat pain with bodyache about 3 days ago. Aching pain, aggravated by swallowing, associated with productive green color, admits fatigue and bodyache , no recent traveling, no headache, no neck pain, started amoxicillin 500mg 2 days ago with prednisone only been taking it for the past 2 days, no night sweat , no rash, no numbness or tingling, no palpitation, no difficulty swallowing, no drooling, no rash, no other medical or psychological complaints. Past Medical History - Provider Review Nursing Documentation Reviewed: Yes - Infectious Disease Hx of Infectious Diseases: None - Tetanus Immunization Tetanus Immunization: Unknown - Cardiac Hx Cardiac Disorders: No - Pulmonary Hx Asthma: Yes - Neurological Hx Neurological Disorder: No - HEENT Hx HEENT Disorder: No - Renal Hx Renal Disorder: No - Endocrine/Metabolic Hx Endocrine Disorders: No - Hematological/Oncological Hx Blood Disorders: No - Integumentary Hx Dermatological Disorder: No - Musculoskeletal/Rheumatological Hx Fractures: Yes - Gastrointestinal Hx Diverticulitis: Yes Other/Comment: h pylori - Genitourinary/Gynecological Hx Genitourinary Disorders: No - Psychiatric Hx Psychophysiologic Disorder: No Hx Depression: No Hx Substance Use: No - Past Surgical History Past Surgical History: No Previous - Surgical History Hx Section: Yes (x1) - Anesthesia Hx Anesthesia: No Hx Anesthesia Reactions: No Hx Malignant Hyperthermia: No - Suicidal Assessment Feels Threatened In Home Enviroment: No Family/Social History - Physician Review Nursing Documentation Reviewed: Yes Family/Social History: Unknown Family HX Smoking Status: Light Smoker < 10 Cigarettes Daily Hx Alcohol Use: No Hx Substance Use: No Hx Substance Use Treatment: No Allergies/Home Meds Allergies/Adverse Reactions: Allergies No Known Allergies Allergy (Verified 10/13/17 09:39) Home Medications: Home Meds Medication Instructions Recorded Confirmed Amoxicillin/Potassium Clav 1 tab PO BID 10/13/17 10/13/17 [Amoxicillin/Clavulanate Potassium 875 mg-125 ] Prednisone [Cherri] 5 mg PO DAILY 10/13/17 10/13/17 Review of Systems - Review of Systems Constitutional: Fatigue. absent: Fevers Eyes: absent: Vision Changes ENT: Sore Throat. absent: Hearing Changes Respiratory: Cough, Sputum, Wheezing. absent: SOB Cardiovascular: absent: Chest Pain Gastrointestinal: absent: Abdominal Pain, Nausea, Vomiting Musculoskeletal: absent: Arthralgias, Back Pain Skin: absent: Rash, Pruritis Neurological: absent: Headache Psychiatric: absent: Anxiety, Depression, Suicidal Ideation Physical Exam Vital Signs Reviewed: Yes Vital Signs Temp Pulse Resp BP Pulse Ox 10/13/17 09:41 98.5 F 84 18 132/88 99 10/13/17 09:38 98.5 F 84 19 132/88 99 Temperature: Afebrile Blood Pressure: Normal Pulse: Regular Respiratory Rate: Normal Appearance: Positive for: Well-Appearing, Non-Toxic, Comfortable Pain Distress: Mild Mental Status: Positive for: Alert and Oriented X 3 - Systems Exam Head: Present: Atraumatic, Normocephalic Pupils: Present: PERRL Extroacular Muscles: Present: EOMI Conjunctiva: Present: Normal Mouth: Present: Moist Mucous Membranes Pharnyx: Present: Normal. No: ERYTHEMA, EXUDATE, TONSILS ENLARGED, Uvular Deviation, Muffled/Hoarse Voice, Strider, Soft Palate/Uvular Edema Nose (External): Present: Atraumatic. No: Abrasion, Contusion Nose (Internal): Present: Normal Inspection, No Active Bleeding. No: Rhinorrhea , Septal Hematoma, Epistaxis Neck: Present: Normal Range of Motion, Trachea Midline. No: Meningeal Signs, MIDLINE TENDERNESS, Paraspinal Tenderness, Lymphadenopathy Respiratory/Chest: Present: Wheezes, Decreased Breath Sounds, Rales, Rhonchi. No: Respiratory Distress, Accessory Muscle Use, Retracting, Tachypneic, Tender to Palpation Cardiovascular: Present: Regular Rate and Rhythm, Normal S1, S2. No: Murmurs Abdomen: Present: Normal Bowel Sounds. No: Tenderness, Distention, Peritoneal Signs, Rebound, Guarding Back: Present: Normal Inspection. No: CVA Tenderness, Midline Tenderness, Paraspinal Tenderness Upper Extremity: Present: Normal Inspection. No: Cyanosis, Edema Lower Extremity: Present: Normal Inspection. No: Edema Neurological: Present: GCS=15, Speech Normal, Motor Func Grossly Intact, Gait Normal, Memory Normal Skin: Present: Warm, Dry, Normal Color. No: Rashes Lymphatic: No: Cervical Adenopathy Psychiatric: Present: Alert, Oriented x 3, Normal Insight, Normal Concentration Medical Decision Making ED Course and Treatment: 10/13/17 10:03 -labs -cxr -IV solumedrol/toradol/duoneb -film writer -observe and reassess 10/13/17 12:49 -Urine hcg is negative -CXR show bronchial thickening? -Labs show no acute findings -UA show no UTI but there is yeast, diflucan 150mg po ordered. -Rocephine/azithromycin with tamiflu ordered. -Pt. is vitally stable, walking around, feeling much better, will discharge home. -Discharge home with zithromax, prednisone, tessalon, albuterol MDI, motrin, stay hydrated, stop smoking, follow up with your own pmd within 2 days, return to the ER for any new or worsening signs or symptoms. - Lab Interpretations Lab Results: 10/13/17 11:00 10/13/17 11:00 Lab Results 10/13/17 11:00: Sodium 138, Potassium 4.5, Chloride 105, Carbon Dioxide 25, Anion Gap 12, BUN 10, Creatinine 0.6 L, Est GFR ( Amer) > 60, Est GFR ( Non-Af Amer) > 60, Random Glucose 84, Calcium 9.4, Magnesium 1.9, Total Bilirubin 0.4, AST 17, ALT 25, Alkaline Phosphatase 57, Total Protein 6.8, Albumin 3.9, Globulin 2.9, Albumin/Globulin Ratio 1.3 10/13/17 11:00: WBC 8.0, RBC 4.35, Hgb 12.4, Hct 36.5, MCV 83.9, MCH 28.5, MCHC 34.0, RDW 13.3, Plt Count 150, MPV 10.7, Gran % 70.6 H, Lymph % (Auto) 20.4 L, [place] % (Auto) 3.7, Eos % (Auto) 5.2 H, Baso % (Auto) 0.1, Gran # 5.65, Lymph # ( Auto) 1.6, [place] # (Auto) 0.3, Eos # (Auto) 0.4, Baso # (Auto) 0.01 10/13/17 10:20: Urine Color Yellow, Urine Appearance Clear, Urine pH 6.5, Ur Specific [place] 1.020, Urine Protein Negative, Urine Glucose (UA) Negative, Urine Ketones Negative, Urine Blood Large H, Urine Nitrate Negative, Urine Bilirubin Negative, Urine Urobilinogen 0.2, Ur Leukocyte Esterase Negative, Urine RBC 25 - 30, Urine WBC 0 - 2, Ur Epithelial Cells 6 - 8, Urine Bacteria Many, Urine Other Uyeast - RAD Interpretation Radiology Orders: 10/13/17 09:59 CHEST TWO VIEWS (PA/LAT) [RAD] Stat HISTORY: cough/wheezing COMPARISON: Chest radiographs 02/21/2016. TECHNIQUE: Chest PA and lateral FINDINGS: LUNGS: No active pulmonary disease. PLEURA: No significant pleural effusion identified. No pneumothorax apparent. CARDIOVASCULAR: Normal. OSSEOUS STRUCTURES: No significant abnormalities. VISUALIZED UPPER ABDOMEN: Normal. OTHER FINDINGS: None. IMPRESSION: No interval acute cardiopulmonary disease appreciated. [employer] Light[employer] Fixtures: Radiologist - Medication Orders Current Medication Orders: Azithromycin (Zithromax 500mg In Ns) 500 mg in 250 mls @ 167 mls/hr IVPB STAT STA PRN Reason: Protocol Stop: 10/13/17 13:45 Discontinued Medications Albuterol/Ipratropium (Duoneb 3 Mg/0.5 Mg (3 Ml) Ud) 3 ml IH Q15M EARLENE Stop: 10/13/17 10:31 Last Admin: 10/13/17 11:30 Dose: 3 ml Fluconazole (Diflucan) 150 mg PO STAT STA PRN Reason: Protocol Stop: 10/13/17 10:43 Last Admin: 10/13/17 11:30 Dose: 150 mg Sodium Chloride (Sodium Chloride 0.9%) 1,000 mls @ 999 mls/hr IV .Q1H1M STA Stop: 10/13/17 10:59 Last Admin: 10/13/17 10:56 Dose: 999 mls/hr eMAR Start Stop Document 10/13/17 10:56 EQ (Rec: 10/13/17 10:57 EQ [id number]) Intravenous Solution Start Date 10/13/17 Start Time 10:57 End Date 10/13/17 Ceftriaxone Sodium (Rocephin 1 Gram Ivpb) 1 gm in 100 mls @ 200 mls/hr IVPB STAT STA PRN Reason: Protocol Stop: 10/13/17 12:45 Ketorolac Tromethamine (Toradol) 30 mg IVP STAT STA Stop: 10/13/17 10:03 Last Admin: 10/13/17 10:57 Dose: 30 mg MAR Pain Assessment Document 10/13/17 10:57 EQ (Rec: 10/13/17 10:58 EQ [id number]) Pain Reassessment Is this a pain reassessment? No Sleep Is patient sleeping during reassessment? No Presence of Pain Presence of Pain Yes Pain Scale Used Pain Scale Used Numeric Location Pain Location Body Site Throat Description Description Constant Intensity of Pain at present 6 Pain Behavior Facial Grimacing Aggravating Factors Changing Position Alleviating Factors/Management Medication Techniques Alleviating Factors Medication IVP Administration Document 10/13/17 10:57 EQ (Rec: 10/13/17 10:58 EQ [id number]) Charges for Administration # of IVP Administrations 1 Methylprednisolone (Solu-Medrol) 125 mg IVP STAT STA Stop: 10/13/17 10:00 Last Admin: 10/13/17 10:57 Dose: 125 mg IVP Administration Document 10/13/17 10:57 EQ (Rec: 10/13/17 10:57 EQ [id number]) Charges for Administration # of IVP Administrations 1 Oseltamivir Phosphate (Tamiflu Cap) 75 mg PO STAT STA PRN Reason: Protocol Stop: 10/13/17 12:20 - PA / FLANGING MACHINE OPERATOR / Resident Statement MD/ has reviewed & agrees with the documentation as recorded. Disposition/Present on Arrival - Present on Arrival Any Indicators Present on Arrival: No History of DVT/PE: No History of Uncontrolled Diabetes: No Urinary Catheter: No History of Decub. Ulcer: No History Surgical Site Infection Following: None - Disposition Have Diagnosis and Disposition been Completed?: Yes Diagnosis: Candidiasis of other urogenital sites, Flu-like symptoms, Bronchitis Disposition: HOME/ ROUTINE Disposition Time: 11:47 Patient Plan: Discharge Patient Problems: Current Active Problems Problem Status Onset Candidiasis of other urogenital sites Acute Flu-like symptoms Acute Pneumonia Acute Condition: IMPROVED Print Language: SENEGALESE Additional Instructions: -Discharge home with zithromax, prednisone, tessalon, albuterol MDI, motrin, stay hydrated, stop smoking, follow up with your own pmd within 2 days, return to the ER for any new or worsening signs or symptoms. Prescriptions: Albuterol HFA [Ventolin HFA 90 mcg/actuation (8 g)] 2 puff IH [id number] #1 in Azithromycin [Zithromax] 250 mg PO DAILY #4 tab Benzonatate [Tessalon Perles] 100 mg PO TID PRN #30 sgl PRN Reason: Other Ibuprofen [Motrin] 600 mg PO QID #30 tab Oseltamivir [Tamiflu] 75 mg PO BID #10 cap Prednisone 50 mg PO DAILY #5 tablet Referrals: Le Shore MD [Primary Care Provider] - Follow up with primary Forms: [employer] (Polish), WORK NOTE
[2017-10-13 10:39] LABS: PH,URINE 6.5 (4.7-8.0); URINE APPEARANCE CLEAR (CLEAR); URINE BILIRUBIN NEGATIVE (NEGATIVE); URINE BLOOD LARGE (NEGATIVE); URINE COLOR YELLOW (YELLOW); URINE GLUCOSE (UA) NEGATIVE (NEGATIVE); URINE LEUKOCYTE ESTERASE NEGATIVE Leu/uL (NEGATIVE); URINE PROTEIN NEGATIVE mg/dL (<30 mg/dL); URINE UROBILINOGEN 0.2 E.U./dL (<1 E.U./dL)
[2017-10-13 10:41] LABS: URINE BACTERIA MANY (NEG); URINE RBC 25 - 30 /hpf (0-2); URINE WBC 0 - 2 /hpf (0-6)
[2017-10-13] MEDS: Albuterol-Ipratrop 3 mg / 0.5 (3 ml) UD IH SCH ×2 (10:57→11:30)
[2017-10-13 11:09] LABS: BASO # 0.01 K/mm3 (0.0-2.0); BASO % 0.1 % (0.0-3.0); EOS # 0.4 (0.0-0.7); EOS % 5.2 % (1.5-5.0); GRAN # 5.65 (1.4-6.5); GRAN % 70.6 % (50.0-68.0); HEMOGLOBIN 12.4 g/dL (12.0-16.0); LYMPH # 1.6 (1.2-3.4); LYMPH % 20.4 % (22.0-35.0); MEAN CELL VOLUME 83.9 fl (80.0-105.0); MEAN CORPUSCULAR HEMOGLOBIN 28.5 pg (25.0-35.0); MEAN PLATELET VOLUME 10.7 fl (7.0-11.0); MONO # 0.3 (0.1-0.6); MONO % 3.7 % (1.0-6.0); RBC 4.35 10^6/uL (3.5-6.1); RED CELL DISTRIBUTION WIDTH 13.3 % (11.5-14.5)
[2017-10-13 11:17] LABS: ALB/GLOB RATIO 1.3 (1.1-1.8); ALBUMIN 3.9 g/dL (3.0-4.8); ALT/SGPT 25 U/L (7-56); AST/SGOT 17 U/L (14-36); BLOOD UREA NITROGEN 10 mg/dL (7-21); CALCIUM 9.4 mg/dL (8.4-10.5); GFR AFRICAN-AMERICAN > 60; GFR NON-AFRICAN AMERICAN > 60
[2017-10-13] MEDS ORDERED: Azithromycin 500MG/NS 250ml 500 MG/250 ML BAG IVPB STA (12:16)
[2017-10-13] MEDS ORDERED: cefTRIAXone 1 gm 1 GM/100 ML BAG IVPB STA (12:16)
--- NOTE | 2017-10-13 12:33 | RAD ---
HISTORY: cough/wheezing COMPARISON: Chest radiographs 02/21/2016. TECHNIQUE: Chest PA and lateral FINDINGS: LUNGS: No active pulmonary disease. PLEURA: No significant pleural effusion identified. No pneumothorax apparent. CARDIOVASCULAR: Normal. OSSEOUS STRUCTURES: No significant abnormalities. VISUALIZED UPPER ABDOMEN: Normal. OTHER FINDINGS: None. IMPRESSION: No interval acute cardiopulmonary disease appreciated.
[2017-10-13 16:19] VITALS: O2SAT 98
[2017-10-13 16:20] VITALS: BP 136/71; PULSE 84
== END 2017-10-13 16:00 | disposition home or self-care (01) ==
LOC: ED 09:22
DX: J11.1 Influenza due to unidentified influenza virus with other respiratory manifestations (principal); B37.49 Other urogenital candidiasis; F17.210 Nicotine dependence, cigarettes, uncomplicated
CPT/HCPCS: 71046; 80053; 81001; 83735; 85025; 94640; 96374; 96375; 99284; J0456; J0696; J1885; J2930; J7040

== ENCOUNTER 2018-11-24 06:04 | Emergency (ER) | payer MEDICAID, OTHER ==
[2018-11-24 06:04] VITALS: BMI 34.2
[2018-11-24 07:22] VITALS: RESP 16; TEMP 98
--- NOTE | 2018-11-24 07:43 | ED PDOC ---
Arrival/HPI - General Chief Complaint: Back Pain Time Seen by Provider: 11/24/18 07:14 Historian: Patient - History of Present Illness Narrative History of Present Illness (Text): 11/24/18 07:40 27y/o female with past medical history of scoliosis, diverticulosis, and asthma, who presents to the emergency department with a 1 week history of worsening back pain and lower extremities pain. Patient states pain gradually worsen starting at the back and then radiating to both legs. Patient also reports tingling on both legs. Patient denies any bowel or bladder dysfunction, no saddle anesthesia, no fever, no trauma. Prior charts reviewed and reveal similiar presentations. Time/Duration: 1 week Symptom Onset: Gradual Symptom Course: Unchanged Quality: Tightness Past Medical History - Provider Review Nursing Documentation Reviewed: Yes - Infectious Disease Hx of Infectious Diseases: None - Tetanus Immunization Tetanus Immunization: Unknown - Cardiac Hx Cardiac Disorders: No - Pulmonary Hx Respiratory Disorders: Yes Hx Asthma: Yes (NEVER HOSPITALIZED) Hx Bronchitis: Yes (10/13/17) - Neurological Hx Neurological Disorder: No - HEENT Hx HEENT Disorder: No - Renal Hx Renal Disorder: No - Endocrine/Metabolic Hx Endocrine Disorders: No - Hematological/Oncological Hx Blood Disorders: No - Integumentary Hx Dermatological Disorder: No - Musculoskeletal/Rheumatological Hx Musculoskeletal Disorders: Yes Hx Back Pain: Yes Other/Comment: scoliosis - Gastrointestinal Hx Gastrointestinal Disorders: Yes Hx Diverticulitis: Yes Other/Comment: HX: [id number]-[id number] - Genitourinary/Gynecological Hx Genitourinary Disorders: Yes Hx Urinary Tract Infection: Yes - Psychiatric Hx Psychophysiologic Disorder: No Hx Substance Use: No - Past Surgical History Past Surgical History: No Previous - Surgical History Hx Section: Yes (x1) - Anesthesia Hx Anesthesia: Yes ("ASLEEP FOR MY ") Hx Anesthesia Reactions: No Hx Malignant Hyperthermia: No - Suicidal Assessment Feels Threatened In Home Enviroment: No Family/Social History - Physician Review Nursing Documentation Reviewed: Yes Family/Social History: Unknown Family HX Smoking Status: Light Smoker < 10 Cigarettes Daily Hx Alcohol Use: No Hx Substance Use: No Hx Substance Use Treatment: No Allergies/Home Meds Allergies/Adverse Reactions: Allergies coconut Allergy (Severe, Verified 11/24/18 06:12) ANAPHYLAXIS Review of Systems - Physician Review All systems were reviewed & negative as marked: Yes - Review of Systems Musculoskeletal: Back Pain, Other (lower extremities pain. ) Physical Exam - Physical Exam Narrative Physical Exam (Text): 11/24/18 07:45 Gen: VS reviewed, alert, well developed, well nourished, nontoxic, mild distress. ENT: normal pharynx. Eye: EOMI, PERRL. Neck: no JVD, supple, no adenopathy. CV: regular rate, regular rhythm, no rubs, no murmur, no gallops, S1, S2, pulses equal and strong. Pulm: no distress, clear to auscultation, no wheeze, no rhonchi, breath sounds equal, no rales. Abd: soft, nontender, no guarding, no rebound, no rigidity, normal bowel sounds. Ext: no edema. Skin: good color, no rash, no cyanosis. Psych: responds appropriately to questions, normal affect. Neuro: oriented x 3, CN2-12 intact grossly, motor intact, sensation intact. Vital Signs Reviewed: Yes Vital Signs Temp Pulse Resp BP Pulse Ox 11/24/18 07:22 98.0 F 70 16 137/71 98 11/24/18 06:19 98.6 F 77 13 134/93 H 99 Temperature: Afebrile Blood Pressure: Hypertensive Pulse: Regular Respiratory Rate: Normal Appearance: Positive for: Well-Appearing, Non-Toxic Pain Distress: Mild Mental Status: Positive for: Alert and Oriented X 3 - Systems Exam Lower Extremity: Present: Other (Lower range of hip secondary to pain. Diminished right lateral leg ) Medical Decision Making ED Course and Treatment: 11/24/18 09:46 patient seen for recurrent low back pain, no neuro deficits, patient encouraged to follow up with a primary care doctor for advanced imaging and referral to back specialist where procedures for pain relief may be indicated. patient appears to understand plan and will states she will make follow up. - Lab Interpretations Narrative Lab Interpretation (Text): 11/24/18 09:34 Lab Results 11/24/18 06:30: Urine Opiates Screen Negative, Urine Methadone Screen Negative, Ur Barbiturates Screen Negative, Ur Phencyclidine Scrn Negative, Ur Amphetamines Screen Negative, U Benzodiazepines Scrn Negative, U Oth Cocaine Metabols Negative, U Cannabinoids Screen Positive H I have reviewed the lab results: Yes - RAD Interpretation Narrative RAD Interpretations (Text): 11/24/18 09:52 ls xr my read: no fx, preserved disc space Radiology Orders: 11/24/18 07:34 LS SPINE WITH OBL > 18 YRS OLD [RAD] [employer] Senior Manager: ED Physician - Medication Orders Current Medication Orders: Discontinued Medications Acetaminophen (Tylenol 325mg Tab) 975 mg PO STAT STA Stop: 11/24/18 07:35 Cyclobenzaprine HCl (Flexeril) 5 mg PO STAT STA Stop: 11/24/18 07:35 Dexamethasone (Decadron Inj) 10 mg IM STAT STA Stop: 11/24/18 07:36 Ketorolac Tromethamine (Toradol) 60 mg IM STAT STA Stop: 11/24/18 07:35 - Scribe Statement The provider has reviewed the documentation as recorded by the Scribjorgito Jacobs All medical record entries made by the Scribe were at my direction and personally dictated by me. I have reviewed the chart and agree that the record accurately reflects my personal performance of the history, physical exam, medical decision making, and the department course for this patient. I have also personally directed, reviewed, and agree with the discharge instructions and disposition. Disposition/Present on Arrival - Present on Arrival Any Indicators Present on Arrival: No History of DVT/PE: No History of Uncontrolled Diabetes: No Urinary Catheter: No History of Decub. Ulcer: No History Surgical Site Infection Following: None - Disposition Have Diagnosis and Disposition been Completed?: Yes Diagnosis: Radiculopathy of lumbar region Disposition: HOME/ ROUTINE Disposition Time: 09:47 Patient Plan: Discharge Patient Problems: Current Active Problems Problem Status Onset Radiculopathy of lumbar region Acute Condition: STABLE Discharge Instructions (ExitCare): Radiculopathy Additional Instructions: you must follow up with a primary care doctor-you may need advanced imaging of your low back (MRI) for further evaluation of your back/leg pain. return for any new or worsening symptoms. Prescriptions: Cyclobenzaprine [Flexeril] 5 mg PO TID #15 tab Ibuprofen [Motrin Tab] 600 mg PO QID #42 tab Referrals: [facility] [place] [facility] [place] - Follow up with primary Jet Faulkner MD [Staff Provider] - Follow up with primary Forms: [facility] [facility] (Tunisian)
[2018-11-24 09:17] VITALS: BP 113/75; PULSE 61; O2SAT 99
[2018-11-24 09:32] LABS: BARBITURATES, UR NEGATIVE (NEGATIVE); BENZODIAZEPINES, UR NEGATIVE (NEGATIVE); OPIATES, UR NEGATIVE (NEGATIVE); PHENCYCLIDINE, UR NEGATIVE (NEGATIVE)
--- NOTE | 2018-11-24 11:30 | RAD ---
Date of service: 11/24/2018 PROCEDURE: Radiographs of the Lumbar Spine. HISTORY: Radicular pain. COMPARISON: No prior. TECHNIQUE: 5 views obtained. FINDINGS: BONES: Normal alignment. No listhesis. No fracture. DISC SPACES: Unremarkable. OTHER FINDINGS: None. IMPRESSION: Unremarkable radiographs of the lumbar spine.
== END 2018-11-24 10:08 | disposition home or self-care (01) ==
LOC: ED 06:04
DX: M54.16 Radiculopathy, lumbar region (principal); F17.210 Nicotine dependence, cigarettes, uncomplicated
CPT/HCPCS: 72110; 80324; 80345; 80346; 80349; 80353; 80358; 80361; 81025; 83992; 96372; 99283; J1100; J1885